=== PATIENT | male | born 1970 | race African-American/Black ===

== ENCOUNTER 2016-05-06 21:25 | Emergency (ER) | payer OTHER ==
[~2016-05-06] VITALS: Ht 180.3 cm; Wt 86.2 kg
[~2016-05-06 21:25] MED LIST: AMOX1TAB61 PO; HYDR-971 PO; LISI1TAB5 PO; METH-37 PO; OXYC-323 PO
[2016-05-06] MEDS ORDERED: FENTANYL PF 100 MCG/2 ML VIAL. IV PRN (21:45)
--- NOTE | 2016-05-06 21:46 | PHYS DOC ---
Past Medical History Past Medical History: Anxiety, Arthritis, Hypertension, Other Additional Past Medical Histor: RA, insomnia. SUBARACHNOID HEMORRHAGE Past Surgical History: Other Additional Past Surgical Histo: BRAIN SURGERY Alcohol Use: None Drug Use: Marijuana Adult General Chief Complaint Chief Complaint: HYPERTENSION HPI HPI Patient is a 45 year old male who presents with complaint of high blood pressure and dizziness. Patient states that his symptoms started earlier this evening. Patient states that his blood pressure was 195/101 at home. The patient states that he has not had any vision changes, loss of speech or swallowing, chest pain, shortness of breath, or vomiting associated with his symptoms. Patient states that he is having frontal headache currently which she attributes to nasal congestion. Patient was seen in the emergency department in January 2016 and treated for mastoiditis. The patient states that his symptoms have been persistent for the past several months but have been improving with use of daily Mucinex. Patient states that he saw his primary physician earlier today as he was out of his blood pressure medication. Patient states he only missed one dose and he went ahead and took his medication earlier this evening after getting it refilled. 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 The patient states that this history otherwise causes him concern when he starts getting high blood pressure and dizziness. Review of Systems Review of Systems Constitutional: Denies fever or chills [] Eyes: Denies change in visual acuity, redness, or eye pain [] HENT: Denies nasal congestion or sore throat [] Respiratory: Denies cough or shortness of breath [] Cardiovascular: Denies chest pain or edema [] GI: Denies abdominal pain, nausea, vomiting, bloody stools or diarrhea [] : Denies dysuria or hematuria [] Musculoskeletal: Denies back pain or joint pain [] Integument: Denies rash or skin lesions [] Neurologic: Dizziness, headache, denies focal weakness or sensory changes [] Current Medications Current Medications Current Medications Medications (Trade) Dose Ordered Sig/Rosario Start Time Stop Time Status Last Admin Dose Admin Fentanyl Citrate (Fentanyl 2ml Vial) 50 mcg PRN Q15MIN PRN 05/06/16 21:45 05/07/16 21:44 05/06/16 22:01 50 MCG Hydralazine HCl (Apresoline) 10 mg 1X ONCE 05/06/16 23:00 05/06/16 23:01 05/06/16 22:38 10 MG Labetalol HCl (Normodyne) 20 mg 1X ONCE 05/06/16 22:00 05/06/16 22:01 DC 05/06/16 21:47 20 MG Ondansetron HCl (Zofran) 4 mg 1X ONCE 05/06/16 22:00 05/06/16 22:01 DC 05/06/16 22:00 4 MG Allergies Allergies Allergies Coded Allergies Type Severity Reaction Last Updated Verified No Known Drug Allergies 02/11/14 No Physical Exam Physical Exam Constitutional: Alert, afebrile, appears in mild discomfort. [] HENT: Normocephalic, atraumatic, bilateral external ears normal, oropharynx moist, no oral exudates, mild to moderate nasal mucosal edema. [] Eyes: PERRLA, EOMI, conjunctiva normal, no discharge. [] Neck: Normal range of motion, no tenderness, supple, no stridor. [] Cardiovascular:Heart rate regular rhythm, no murmur [] Lungs & Thorax: Bilateral breath sounds clear to auscultation [] Abdomen: Bowel sounds normal, soft, no tenderness, no masses, no pulsatile masses. [] Skin: Warm, dry, no erythema, no rash. [] Back: No tenderness, no CVA tenderness. [] Extremities: No tenderness, no cyanosis, no clubbing, ROM intact, no edema. [] Neurologic: Alert and oriented X 3, normal motor function, normal sensory function, no focal deficits noted. [] Current Patient Data Vital Signs Vital Signs Date Time Temp Pulse Resp B/P Pulse Ox O2 Delivery O2 Flow Rate FiO2 05/06/16 22:38 74 153/96 05/06/16 22:15 21 99 Room Air 05/06/16 21:30 98.3 98.3 Lab Values Laboratory Tests Test 05/06/16 21:40 White Blood Count 17.5x10^3/uL (4.0-11.0) H Red Blood Count 4.12x10^6/uL (4.30-5.70) L Hemoglobin 13.2g/dL (13.0-17.5) Hematocrit 39.1% (39.0-53.0) Mean Corpuscular Volume 95fL (79-100) Mean Corpuscular Hemoglobin 32pg (25-35) Mean Corpuscular Hemoglobin Concent 34g/dL (31-37) Red Cell Distribution Width 12.3% (11.5-14.5) Platelet Count 246x10^3/uL (140-400) Neutrophils (%) (Auto) 77% (31-73) H Lymphocytes (%) (Auto) 16% (24-48) L Monocytes (%) (Auto) 6% (0-9) Eosinophils (%) (Auto) 1% (0-3) Basophils (%) (Auto) 1% (0-3) Neutrophils # (Auto) 13.4x10^3uL (1.8-7.7) H Lymphocytes # (Auto) 2.7x10^3/uL (1.0-4.8) Monocytes # (Auto) 1.1x10^3/uL (0.0-1.1) Eosinophils # (Auto) 0.1x10^3/uL (0.0-0.7) Basophils # (Auto) 0.2x10^3/uL (0.0-0.2) Segmented Neutrophils % 78% (35-66) H Lymphocytes % 17% (24-48) L Monocytes % 4% (0-10) Eosinophils % 1% (0-5) Toxic Granulation Slight Platelet Estimate Adequate (ADEQUATE) Sodium Level 143mmol/L (136-145) Potassium Level 3.9mmol/L (3.5-5.1) Chloride Level 104mmol/L (98-107) Carbon Dioxide Level 30mmol/L (21-32) Anion Gap 9 (6-14) Blood Urea Nitrogen 11mg/dL (8-26) Creatinine 0.9mg/dL (0.7-1.3) Estimated GFR (Cockcroft-Gault) 109.9 Glucose Level 104mg/dL (70-99) H Calcium Level 8.6mg/dL (8.5-10.1) Magnesium Level 1.9mg/dL (1.8-2.4) Laboratory Tests 05/06/16 21:40 Laboratory Tests 05/06/16 21:40 EKG EKG Not performed[] Radiology/Procedures Radiology/Procedures Not performed [] Course & Med Decision Making Course & Med Decision Making Pertinent Labs and Imaging studies reviewed. (See chart for details) The patient was given IV labetalol and fentanyl for symptoms. Patient states that his headache resolved after administration of fentanyl. Patient required an additional dose of IV hydralazine for blood pressure, however after administration the patient achieved a 30% decrease in his blood pressure and patient is having no symptoms at this time. The patient's symptoms may be in part due to sinus headache with the resultant pain causing reactive hypertension. The patient will be given a prescription for Barnum to help with symptoms and advised follow-up in one week with primary doctor. Advised patient to continue on Mucinex as prescribed by his physician and to be sure to take his blood pressure medication as prescribed. Advised return to emergency department for any worsening symptoms. Patient voiced understanding and in agreement with treatment plan. Dragon Disclaimer Dragon Disclaimer This electronic medical record was generated, in whole or in part, using a voice recognition dictation system. Departure Departure Impression: Primary Impression: Hypertension Additional Impression: Sinus headache Disposition: HOME, SELF-CARE Condition: IMPROVED Referrals: NO PCP (PCP) Patient Instructions: Hypertension Additional Instructions: Follow-up with your primary doctor in 1 week. Return to the emergency department for any worsening symptoms. Scripts Hydrocodone/Apap 5-325 (Barnum 5-325 Tablet)1 Each Tablet1 Tab PO Q4-6HRS PRN PAIN #20 TAB Prov:ISAÍAS FOUNTAIN MD 05/06/16 Problem Qualifiers Primary Impression: Hypertension Hypertension type: essential hypertension Qualified Code: I10 - Essential ( primary) hypertension ISAÍAS FOUNTAIN MD May 06, 2016 21:46
[2016-05-06 21:50] LABS: BASO # 0.2 x10^3/uL (0.0-0.2); BASO % 1 % (0-3); EOS % 1 % (0-3); HEMATOCRIT 39.1 % (39.0-53.0); HEMOGLOBIN 13.2 g/dL (13.0-17.5); LYMPH # 2.7 x10^3/uL (1.0-4.8); LYMPH % 16 % (24-48); MEAN CORPUSCULAR HEMOGLOBIN 32 pg (25-35); MEAN CORPUSCULAR HGB CONC 34 g/dL (31-37); MEAN CORPUSCULAR VOLUME 95 fL (79-100); MONO % 6 % (0-9); NEUT % 77 % (31-73); PLATELET COUNT 246 x10^3/uL (140-400); RED BLOOD COUNT 4.12 x10^6/uL (4.30-5.70); RED CELL DISTRIBUTION WIDTH 12.3 % (11.5-14.5); WHITE BLOOD COUNT 17.5 x10^3/uL (4.0-11.0)
[2016-05-06 22:00] LABS: CALCIUM 8.6 mg/dL (8.5-10.1); CREATININE 0.9 mg/dL (0.7-1.3); GFR 109.9; MAGNESIUM 1.9 mg/dL (1.8-2.4); POTASSIUM 3.9 mmol/L (3.5-5.1)
[2016-05-06] MEDS ORDERED: LABETALOL 20 MG/4 ML DISP.SYRIN. IVP ONE (22:00)
[2016-05-06] MEDS ORDERED: ONDANSETRON PF 4 MG/2 ML VIAL. IV ONE (22:00)
[2016-05-06 22:15] LABS: % EOS 1 % (0-5)
[2016-05-06 22:17] LABS: TOXIC GRANULATION SLIGHT
[2016-05-06 22:24] LABS: PLT ESTIMATE ADEQUATE (ADEQUATE)
[2016-05-06] MEDS ORDERED: HYDR-971 PO (22:34)
[2016-05-06 22:45] VITALS: BP 142/85
[2016-05-06] MEDS ORDERED: hydrALAZINE 20 MG/ML VIAL. IVP ONE (23:00)
[2016-05-10] MEDS ORDERED: AMLO10TA2 PO (12:21)
[2016-05-10] MEDS ORDERED: LOSA100T2 PO (12:21)
[2016-05-10] MEDS ORDERED: CARV25TA PO (12:21)
== END 2016-05-06 22:55 | disposition home or self-care (01) ==
LOC: ER 21:25
DX: I10 Essential (primary) hypertension (principal); R51 Headache; F41.9 Anxiety disorder, unspecified; M19.90 Unspecified osteoarthritis, unspecified site; M06.9 Rheumatoid arthritis, unspecified; F12.10 Cannabis abuse, uncomplicated; G47.00 Insomnia, unspecified
CPT/HCPCS: 36415; 80048; 83735; 85007; 85027; 96374; 96375; 99284; J0360; J2405; J3010; J3490